=== PATIENT | female | born 1945 | race Caucasian/White ===

== ENCOUNTER 2018-06-02 11:20 | Day surgery (SDC) | payer MEDICARE, OTHER ==
[~2018-06-02] VITALS: Ht 149.9 cm; Wt 40.7 kg
[~2018-06-02 11:20] MED LIST: ACET500; ALEN70 PO; ASPI325; Acidophilus La100 GM PO; CIPR500 PO; ESTRTP; HYDACE5 PO; LETR2.5 PO; METR500 PO; NAPR500 PO; RXSULTRIDS PO; SULTRIDS PO
[2018-06-02] MEDS ORDERED: LETR2.5 (11:59)
[2018-06-02] MEDS ORDERED: ERGO400 (11:59)
== END 2018-06-02 13:08 | disposition home or self-care (01) ==
LOC: ORSCSDS 11:20
PROVIDERS: Surgery
PROC: 0DBP8ZX Excision of Rectum, Via Natural or Artificial Opening Endoscopic, Diagnostic (ICD-10-PCS; principal; 2018-06-02 12:30)
DX: Z85.048 Personal history of other malignant neoplasm of rectum, rectosigmoid junction, and anus (principal); K62.1 Rectal polyp; Z93.3 Colostomy status; E78.5 Hyperlipidemia, unspecified; D64.9 Anemia, unspecified; Z87.891 Personal history of nicotine dependence; Z79.899 Other long term (current) drug therapy
CPT/HCPCS: 88305; J0330; J1980; J2405

== ENCOUNTER 2018-11-25 11:52 | Inpatient (IN) | payer MEDICARE, OTHER ==
[~2018-11-25] VITALS: Ht 149.9 cm; Wt 41.3 kg
[~2018-11-25 11:52] MED LIST changes: +ERGO400; +LETR2.5
[2018-11-25 12:38] LABS: BASOPHILS ABSOLUTE AUTO 0.07 K/mm3 (0.00-0.23); BASOPHILS PERCENT AUTO 1 % (0-2); EOSINOPHILS ABSOLUTE AUTO 0.35 K/mm3 (0.00-0.68); EOSINOPHILS PERCENT AUTO 3 % (0-6); Hematocrit 42.6 % (33.0-51.0); Hemoglobin 13.2 g/dL (11.5-16.0); IMMATURE GRAN PERCENT AUTO 1 % (0-1); LYMPHOCYTES ABSOLUTE AUTO 1.05 K/mm3 (0.84-5.20); LYMPHOCYTES PERCENT AUTO 7 % (21-46); MONOCYTES ABSOLUTE AUTO 0.27 K/mm3 (0.16-1.47); MONOCYTES PERCENT AUTO 2 % (4-13); Mean Corpuscular HGB 28.4 pg (26.0-34.0); Mean Corpuscular Volume 92 fL (80-100); NEUTROPHILS ABSOLUTE AUTO 12.34 K/mm3 (1.96-9.15); NEUTROPHILS PERCENT AUTO 87 % (41-73); RDW Coefficient Variation 13.7 % (11.7-14.2); RDW Standard Deviation 46.7 fL (35.1-46.3); Red Blood Cell Count 4.64 M/mm3 (3.80-5.20); White Blood Cell Count 14.18 K/mm3 (4.00-11.30)
[2018-11-25 12:41] LABS: Mean Platelet Volume 9.4 fL (9.1-12.4); Platelet Count 456 K/mm3 (150-400)
[2018-11-25 12:55] LABS: Alanine Aminotransfer (ALT/SGP 14 U/L (12-78); Albumin, Blood 2.9 g/dL (3.4-5.0); Albumin/Globulin Ratio 0.5 (0.8-1.8); Alk Phos 110 U/L (50-136); Anion Gap 10 mmol/L (6-16); Aspartate Aminotrans (AST/SGOT 16 U/L (12-37); Bilirubin, Total 0.2 mg/dL (0.1-1.0); Blood Urea Nitrogen 9 mg/dL (8-24); CO2, Blood 22 mmol/L (21-32); Calcium, Blood 8.8 mg/dL (8.5-10.1); Chloride, Blood 103 mmol/L (98-108); Creatinine, Blood 0.56 mg/dL (0.40-1.00); Globulin, Blood 5.4 g/dL (2.2-4.0); Glomerular Filtration Rate >60 (60-); Glucose, Blood 110 mg/dL (70-99); Potassium, Blood 4.2 mmol/L (3.5-5.5); Sodium, Blood 135 mmol/L (136-145); Total Protein, Blood 8.3 g/dL (6.4-8.2)
[2018-11-25 13:16] LABS: Source, Urine Clean Catch
[2018-11-25 13:19] LABS: Bilirubin, Urine Neg (Neg); Blood, Urine 2+ (Neg); Glucose Qualitative, Urine Neg (Neg); Ketones, Urine Neg (Neg); Leukocyte Esterase, Urine 3+ (Neg); Nitrite, Urine Pos (Neg); Protein, Urine 2+ (Neg); Specific Gravity, Urine 1.015 (1.003-1.022); Urobilinogen, Urine NORM (Normal)
[2018-11-25 13:29] LABS: Appearance, Urine Hazy (Clear); Color, Urine Yellow (P-Yellow)
[2018-11-25 13:30] LABS: Bacteria Many /hpf; Squamous Epithelial Cells Few /hpf (Few); White Blood Cells, Urine TNTC /hpf (0-5)
[2018-11-26 05:21] LABS: BASOPHILS ABSOLUTE AUTO 0.04 K/mm3 (0.00-0.23); BASOPHILS PERCENT AUTO 0 % (0-2); EOSINOPHILS ABSOLUTE AUTO 0.01 K/mm3 (0.00-0.68); EOSINOPHILS PERCENT AUTO 0 % (0-6); Hematocrit 31.3 % (33.0-51.0); IMMATURE GRAN ABSOLUTE AUTO 0.05 K/mm3 (0.00-0.10); IMMATURE GRAN PERCENT AUTO 0 % (0-1); LYMPHOCYTES PERCENT AUTO 3 % (21-46); MONOCYTES ABSOLUTE AUTO 0.78 K/mm3 (0.16-1.47); MONOCYTES PERCENT AUTO 6 % (4-13); Mean Corpuscular HGB 27.8 pg (26.0-34.0); Mean Corpuscular HGB Conc 31.9 g/dL (31.5-36.5); Mean Platelet Volume 9.7 fL (9.1-12.4); NEUTROPHILS ABSOLUTE AUTO 10.98 K/mm3 (1.96-9.15); NEUTROPHILS PERCENT AUTO 90 % (41-73); Platelet Count 307 K/mm3 (150-400); RDW Coefficient Variation 13.9 % (11.7-14.2); RDW Standard Deviation 44.4 fL (35.1-46.3); White Blood Cell Count 12.26 K/mm3 (4.00-11.30)
[2018-11-26 05:22] LABS: Mean Corpuscular Volume 87 fL (80-100)
[2018-11-26 05:47] LABS: Alanine Aminotransfer (ALT/SGP 7 U/L (12-78); Albumin, Blood 2.1 g/dL (3.4-5.0); Albumin/Globulin Ratio 0.5 (0.8-1.8); Alk Phos 81 U/L (50-136); Anion Gap 8 mmol/L (6-16); Aspartate Aminotrans (AST/SGOT 13 U/L (12-37); Bilirubin, Total 0.7 mg/dL (0.1-1.0); Blood Urea Nitrogen 8 mg/dL (8-24); Bun/Creatinine Ratio 11.6 (12.0-20.0); CO2, Blood 23 mmol/L (21-32); Calcium, Blood 7.6 mg/dL (8.5-10.1); Chloride, Blood 104 mmol/L (98-108); Creatinine, Blood 0.69 mg/dL (0.40-1.00); Globulin, Blood 4.1 g/dL (2.2-4.0); Glomerular Filtration Rate >60 (60-); Glucose, Blood 83 mg/dL (70-99); Potassium, Blood 3.6 mmol/L (3.5-5.5); Sodium, Blood 135 mmol/L (136-145)
[2018-11-26 05:51] LABS: Total Protein, Blood 6.2 g/dL (6.4-8.2)
--- NOTE | 2018-11-26 07:35 | NUR ---
SHIFT SUMMARY A/O X4, ABLE TO MAKE NEEDS KNOWN. COOPERATIVE WITH CARE. ANSWERS QUESTIONS APPROPRIATELY. C/O PAIN/DISCOMFORT TO ABDOMEN RATED 8-9/10; MEDICATED PER EMAR. CAPTAIN OF GUARDS NOTED THAT PT HAD A FEVER SPIKE; 102.5 ORAL; MEDICATED PER EMAR FOR PAIN/FEVER. TELE IN PLACE. IV RUNNING NS @ 125 ML/HR. UP TO BATHROOM WITH 1 ASSIST SLIGHTLY UNSTEADY GAIT. BED IN LOWEST POSITION. CALL LIGHT AND BELONGINGS IN REACH. CONTINUED TO MONITOR T/O SHIFT. REPORT GIVEN TO ONCOMING RN.
--- NOTE | 2018-11-26 16:22 | NUR ---
SHIFT SUMMARY. A&OX4, SBA TO BATHROOM SECONDARY TO IV AND TELE, AWARE OF LIMITATIONS. PT WITH FEVER THIS AM, RESPONDED WELL TO APAP. PT REMAINED WITH ELEVATED TEMPERATURE THROUGHOUT REST OF SHIFT, BUT NOT GREATER THAT 100 F. PT WITH L ABD/FLANK PAIN MANAGED WELL WITH PO ULTRAM. PT WITH ONE EPISODE OF NAUSEA WITHOUT EMESIS MANAGED WELL WITH IV ZOFRAN. NO SOB. NO OTHER CHANGES.
[2018-11-27 04:32] LABS: BASOPHILS ABSOLUTE AUTO 0.04 K/mm3 (0.00-0.23); BASOPHILS PERCENT AUTO 0 % (0-2); EOSINOPHILS ABSOLUTE AUTO 0.06 K/mm3 (0.00-0.68); EOSINOPHILS PERCENT AUTO 0 % (0-6); Hematocrit 33.1 % (33.0-51.0); Hemoglobin 10.9 g/dL (11.5-16.0); IMMATURE GRAN ABSOLUTE AUTO 0.08 K/mm3 (0.00-0.10); IMMATURE GRAN PERCENT AUTO 1 % (0-1); LYMPHOCYTES ABSOLUTE AUTO 0.42 K/mm3 (0.84-5.20); LYMPHOCYTES PERCENT AUTO 3 % (21-46); MONOCYTES ABSOLUTE AUTO 1.15 K/mm3 (0.16-1.47); MONOCYTES PERCENT AUTO 8 % (4-13); Mean Corpuscular HGB 28.6 pg (26.0-34.0); Mean Corpuscular HGB Conc 32.9 g/dL (31.5-36.5); Mean Corpuscular Volume 87 fL (80-100); Mean Platelet Volume 9.4 fL (9.1-12.4); NEUTROPHILS PERCENT AUTO 88 % (41-73); Platelet Count 304 K/mm3 (150-400); RDW Standard Deviation 44.9 fL (35.1-46.3); Red Blood Cell Count 3.81 M/mm3 (3.80-5.20); White Blood Cell Count 14.75 K/mm3 (4.00-11.30)
--- NOTE | 2018-11-27 04:36 | NUR ---
SHIFT SUMMARY A/O X4, ABLE TO MAKE NEEDS KNOWN. COOPERATIVE WITH CARE. ANSWERS QUESTIONS APPROPRIATELY. NO C/O PAIN/DISCOMFORT. APPEARED TO REST MUCH OF SHIFT. REMAINS FEBRILE. ALL OTHER VITALS WNL. REMAINS A SBA; ACCORDING TO JACK SETTER CONTINUES TO BE A BIT UNSTEADY ON FEET. NO ACUTE CHANGES NOTED OVERNIGHT. BED IN LOWEST POSITION. CALL LIGHT AND BELONGINGS WITHIN REACH. WCTM. REPORT TO ONCOMING RN.
[2018-11-27 05:01] LABS: Anion Gap 14 mmol/L (6-16); Blood Urea Nitrogen 8 mg/dL (8-24); Bun/Creatinine Ratio 13.4 (12.0-20.0); CO2, Blood 19 mmol/L (21-32); Calcium, Blood 8.1 mg/dL (8.5-10.1); Chloride, Blood 102 mmol/L (98-108); Glomerular Filtration Rate >60 (60-); Glucose, Blood 65 mg/dL (70-99); Potassium, Blood 3.4 mmol/L (3.5-5.5); Sodium, Blood 135 mmol/L (136-145)
--- NOTE | 2018-11-27 07:26 | NUR ---
0520 PT STATED THAT SHE FELT A HEAVINESS IN HER CHEST THAT WAS DIFFERENT FROM THE ORIGINAL HEARTBURN SHE HAD BEEN FEELING THE LAST 2 DAYS. STATED UNABLE TO GIVE A PAIN NUMBER FROM 1-10, THE HEAVINESS JUST FELT UNCOMFORTABLE. PT HAS NO SIGNIFICANT CARDIAC HX. EMESIS X1 WITH NAUSEA AND STILL EXPERIENCING HEARTBURN. ALSO 100.8 TEMPERATURE NOTED. CALL PHYSICIAN. NEW ORDERS FOR EKG. STAT TROPONIN. MAALOX 30 ML PO. GIVEN ZOFRAN FOR N/V. AND TYLENOL FOR FEVER. EKG COMPLETED.
--- NOTE | 2018-11-27 17:22 | NUR ---
SHIFT SUMMARY. A&OX4, SBA TO BATHROOM. PT REPORTED L ABD TO FLANK PAIN THAT WAS INTERMITTENT AND DID NOT REQUIRE MEDICATION TODAY. AFEBRILE THIS SHIFT. PT REPORTS SUDDEN ONSETS OF VOMITTING GREEN LIQUID 3 TIMES THIS SHIFT. PT REPORTS NAUSEA SUBSIDES AFTER VOMITTING. PT HAS REPORTS POOR APPETITE AND ALMOST NO FOOD INTAKE. CONTINUES WITH MOSTLY LIQUID INTAKE. RENAL US COMPLETED THIS AFTERNOON. IN TO VISIT THIS MORNING. NO OTHER CHANGES.
--- NOTE | 2018-11-27 18:38 | NUR ---
POSTIVE BLOOD CULTURE RESULT REPORTED BY LAB, DR. VANCE NOTIFIED OF RESULT, NO NEW ORDERS.
--- NOTE | 2018-11-28 | NUR ---
2309 NOTIFIED OF POSITIVE BLOOD CULTURE. CALLED PHARMACY TO FIND OUT PATIENT IS BEING FULLY COVERED BY CURRENT ABX. PHARMACIST SUGGESTED VANCOMYCIN WELL. PHARMACIST STATED TO MAKE PHYSICIAN AWARE.
[2018-11-28 05:06] LABS: BASOPHILS ABSOLUTE AUTO 0.04 K/mm3 (0.00-0.23); BASOPHILS PERCENT AUTO 0 % (0-2); EOSINOPHILS ABSOLUTE AUTO 0.13 K/mm3 (0.00-0.68); EOSINOPHILS PERCENT AUTO 1 % (0-6); Hematocrit 34.7 % (33.0-51.0); Hemoglobin 11.1 g/dL (11.5-16.0); IMMATURE GRAN ABSOLUTE AUTO 0.14 K/mm3 (0.00-0.10); IMMATURE GRAN PERCENT AUTO 1 % (0-1); LYMPHOCYTES ABSOLUTE AUTO 0.61 K/mm3 (0.84-5.20); LYMPHOCYTES PERCENT AUTO 3 % (21-46); MONOCYTES ABSOLUTE AUTO 1.46 K/mm3 (0.16-1.47); MONOCYTES PERCENT AUTO 8 % (4-13); Mean Corpuscular HGB 27.8 pg (26.0-34.0); Mean Corpuscular Volume 87 fL (80-100); Mean Platelet Volume 9.6 fL (9.1-12.4); NEUTROPHILS ABSOLUTE AUTO 15.61 K/mm3 (1.96-9.15); NEUTROPHILS PERCENT AUTO 87 % (41-73); Platelet Count 363 K/mm3 (150-400); RDW Coefficient Variation 13.9 % (11.7-14.2); RDW Standard Deviation 44.5 fL (35.1-46.3); White Blood Cell Count 17.99 K/mm3 (4.00-11.30)
[2018-11-28 05:34] LABS: Anion Gap 16 mmol/L (6-16); Blood Urea Nitrogen 8 mg/dL (8-24); CO2, Blood 17 mmol/L (21-32); Calcium, Blood 7.8 mg/dL (8.5-10.1); Chloride, Blood 105 mmol/L (98-108); Creatinine, Blood 0.57 mg/dL (0.40-1.00); Glomerular Filtration Rate >60 (60-); Glucose, Blood 75 mg/dL (70-99); Potassium, Blood 3.3 mmol/L (3.5-5.5); Sodium, Blood 138 mmol/L (136-145)
--- NOTE | 2018-11-28 06:32 | NUR ---
SHIFT SUMMARY A/O X4, ABLE TO MAKE NEEDS KNOWN. COOPERATIVE WITH CARE. ANSWERS QUESTIONS APPROPRIATELY. C/O MILD DISCOMFORT TO L FLANK; 100.4 TEMPERATURE AT THAT TIME; MEDICATED PER EMAR. APPEARED TO REST MUCH OF SHIFT. POSITIVE BLOOD CULTURES FOR GRAM + COCCI WITH CLUSTERS AND GRAM + COCCI. REPORTED FINDING TO ON-CALL PHYSICIAN WHICH THEN ORDERED A ONE TIME DOSING OF VACOMYCIN. WHITE BLOOD CELL COUNT CONTINUES TO INCREASE. PHYSICIAN TO RE-ASSESS. VSS THIS AM/AFEBRILE. HOPEFUL TO GO HOME SOON. NO ACUTE CHANGES THIS SHIFT. WCTM. BED IN LOWEST POSITION. CALL LIGHT IN REACH. REPORT TO ONCOMING RN.
--- NOTE | 2018-11-28 09:00 | NUR ---
SPOKE WITH NURSE AT DR. THOMAS OFFICE AND RECIEVED OK TO ACCESS MEDIPORT FOR IV ABX.
--- NOTE | 2018-11-28 10:27 | NUR ---
AWRD ACCESSED TO R CHEST WALL WITH STERILE PROCEDURE, ASSISTED BY
--- NOTE | 2018-11-28 16:00 | NUR ---
Per admit trigger, I met with Mrs. Chow to offer prayer and encouragement. She appears quite frail and had trouble staying awake. She smiled easily and accepted prayer for healing and strength. I will remain available.
--- NOTE | 2018-11-28 17:07 | NUR ---
PERMISSION FOR CARE PATIENT GAVE MACHINE PRECISION ETCHER PERMISSION TO PROVIDE CARE ON 11/29/2018 [id number].
--- NOTE | 2018-11-28 18:26 | NUR ---
SHIFT SUMMARY. A&OX4, INDEPENDENT IN ROOM. PT CONTINUES WITH LETHARGY, AND REPORTS GENERAL FEELING OF UNWELL. NO FEVER THIS SHIFT. PT WITH INTERMITENT NAUSEA THAT RESOLVES SHORTLY AFTER VOMITTING THREE TIMES THIS SHIFT. PT DENIES NEED FOR ANTIEMETIC. PT WITH PAIN THAT DEVELOPED THIS AFTERNOON TO L FLANK THAT IS SHARP AND STABBING RADIATES TO BACK, PT REPORTED SOME RELIEF WITH PRN ULTRAM. IV ROCEPHIN D/C'D. PT CONTINUES WITH IV VANCO AND LEVAQUIN. PENDING FINAL BLOOD CULTURE RESULTS. POOR MEAL INTAKE, PT IS INTAKING FLUIDS.
[2018-11-29 04:38] LABS: BASOPHILS ABSOLUTE AUTO 0.04 K/mm3 (0.00-0.23); BASOPHILS PERCENT AUTO 0 % (0-2); EOSINOPHILS ABSOLUTE AUTO 0.06 K/mm3 (0.00-0.68); EOSINOPHILS PERCENT AUTO 0 % (0-6); Hemoglobin 11.2 g/dL (11.5-16.0); IMMATURE GRAN ABSOLUTE AUTO 0.12 K/mm3 (0.00-0.10); IMMATURE GRAN PERCENT AUTO 1 % (0-1); LYMPHOCYTES ABSOLUTE AUTO 0.61 K/mm3 (0.84-5.20); LYMPHOCYTES PERCENT AUTO 4 % (21-46); MONOCYTES ABSOLUTE AUTO 1.38 K/mm3 (0.16-1.47); MONOCYTES PERCENT AUTO 8 % (4-13); Mean Corpuscular HGB 28.6 pg (26.0-34.0); Mean Corpuscular HGB Conc 32.9 g/dL (31.5-36.5); Mean Corpuscular Volume 87 fL (80-100); Mean Platelet Volume 9.1 fL (9.1-12.4); NEUTROPHILS ABSOLUTE AUTO 14.16 K/mm3 (1.96-9.15); NEUTROPHILS PERCENT AUTO 87 % (41-73); Platelet Count 387 K/mm3 (150-400); RDW Coefficient Variation 13.9 % (11.7-14.2); RDW Standard Deviation 44.2 fL (35.1-46.3); Red Blood Cell Count 3.92 M/mm3 (3.80-5.20); White Blood Cell Count 16.37 K/mm3 (4.00-11.30)
[2018-11-29 04:59] LABS: Anion Gap 14 mmol/L (6-16); Blood Urea Nitrogen 6 mg/dL (8-24); Bun/Creatinine Ratio 12.8 (12.0-20.0); CO2, Blood 19 mmol/L (21-32); Calcium, Blood 7.4 mg/dL (8.5-10.1); Chloride, Blood 106 mmol/L (98-108); Creatinine, Blood 0.47 mg/dL (0.40-1.00); Glomerular Filtration Rate >60 (60-); Glucose, Blood 87 mg/dL (70-99); Sodium, Blood 139 mmol/L (136-145)
--- NOTE | 2018-11-29 05:37 | NUR ---
SHIFT SUMMARY PT ADMITTED WITH UTI SECONDARY TO SEPSIS WITH NOTED POSITIVE BLOOD CULTURES WITH GRAM POSITIVE COCCI IN CLUSTERS. MEDIPORT TO R UPPER CHEST, MAY ACCESS FOR MEDS AND LABS. FULL CODE. LOVENOX. REGULAR DIET. THE PT IS PLEASENT, COOPERATIVE, ALERT, ORIENTED, AND INDEPENDENT IN ROOM. 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 THE PT STATED THAT SHE ONLY HAS ONE BAG LEFT IN THE HOSPITAL AND HER IS SUPPOSED TO BRING IN SOME MORE HOPEFULLY TODAY. THE PT PRESENTED TO THE ED WITH L FLANK PAIN. PT HAS A NOTED PAST HISTORY OF RECTAL CANCER AND L SIDED HYDRONEPHROSIS S/P URETERAL STEND IN SEPTEMBER 2018 FOR A KIDNEY STONE THAT IS DUE TO BE REMOVED LAT[facility]. 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 PER REPORT PT MAY POSSIBLY HAVE INFECTION CAUSED BY STENT BUT PT REPORTED BEING TOLD IT COULD BE CAUSED BY RECENT MEDIPORT ACCESS. THE PT HAS APPEARED TO SLEEP COMFORTABLY WITH NO APPARENT SIGNS OF ACUTE DISTRESS. ABLE TO MAKE NEEDS KNOWN AND CALL LIGHT IN REACH.
--- NOTE | 2018-11-29 17:51 | NUR ---
SUMMARY PT SITTING UP IN BED WATCHING TV, PT HAS BEEN INDEPENDENT IN THE ROOM, PT IS PLEASANT AND COOPERATIVE WITH CARE, PT HAS A POOR APPETITE, ONLY EATS SMALL AMOUNTS SPORADICALLY, PT WILL BE NPO AFTER MIDNIGHT FOR REMOVAL OF MEDIPORT TOMORROW, PT AWARE AND UPDATED, VSS, NO ACUTE CHANGES, WILL CONT TO MONITOR
[2018-11-29 21:38] LABS: Vancomycin, Trough 3.5 ug/mL (5.0-10.0)
--- NOTE | 2018-11-30 04:57 | NUR ---
SHIFT SUMMARY PT SLEPT FAIR, HAD SOME NAUSEA EARLY ON IN SHIFT AND MEDICATED WITH IV COMPAZINE. ALSO HAD SOME MAALOX FOR HEARTBURN. PT GIVEN EVENING DOSE OF IV VANCO AND MEDIPORT DEACCESSED INSTRUCTED PER PREVIOUS NURSE REPORT. PT TO HAVE MEDIPORT REMOVED TODAY. PT NPO AFTER MIDNIGHT. NO FURTHER C/O'S THIS AM, WILL CONTINUE TO MONITOR.
[2018-11-30 05:04] LABS: BASOPHILS ABSOLUTE AUTO 0.05 K/mm3 (0.00-0.23); BASOPHILS PERCENT AUTO 0 % (0-2); EOSINOPHILS ABSOLUTE AUTO 0.01 K/mm3 (0.00-0.68); EOSINOPHILS PERCENT AUTO 0 % (0-6); Hematocrit 38.3 % (33.0-51.0); Hemoglobin 12.4 g/dL (11.5-16.0); IMMATURE GRAN ABSOLUTE AUTO 0.15 K/mm3 (0.00-0.10); IMMATURE GRAN PERCENT AUTO 1 % (0-1); LYMPHOCYTES ABSOLUTE AUTO 0.71 K/mm3 (0.84-5.20); LYMPHOCYTES PERCENT AUTO 4 % (21-46); MONOCYTES ABSOLUTE AUTO 1.63 K/mm3 (0.16-1.47); MONOCYTES PERCENT AUTO 9 % (4-13); Mean Corpuscular HGB 27.6 pg (26.0-34.0); Mean Corpuscular HGB Conc 32.4 g/dL (31.5-36.5); Mean Corpuscular Volume 85 fL (80-100); Mean Platelet Volume 9.2 fL (9.1-12.4); NEUTROPHILS ABSOLUTE AUTO 15.69 K/mm3 (1.96-9.15); NEUTROPHILS PERCENT AUTO 86 % (41-73); Platelet Count 477 K/mm3 (150-400); RDW Coefficient Variation 13.9 % (11.7-14.2); RDW Standard Deviation 43.3 fL (35.1-46.3); Red Blood Cell Count 4.49 M/mm3 (3.80-5.20); White Blood Cell Count 18.24 K/mm3 (4.00-11.30)
[2018-11-30 05:35] LABS: Anion Gap 12 mmol/L (6-16); Blood Urea Nitrogen 9 mg/dL (8-24); Bun/Creatinine Ratio 18.9 (12.0-20.0); CO2, Blood 21 mmol/L (21-32); Calcium, Blood 8.1 mg/dL (8.5-10.1); Chloride, Blood 103 mmol/L (98-108); Creatinine, Blood 0.48 mg/dL (0.40-1.00); Glomerular Filtration Rate >60 (60-); Glucose, Blood 125 mg/dL (70-99); Potassium, Blood 3.7 mmol/L (3.5-5.5); Sodium, Blood 136 mmol/L (136-145)
--- NOTE | 2018-11-30 12:45 | NUR ---
PT TRANSMPORTED TO [facility]. AGREES WITH PLANNED SURGERY. LUNG SOUNDS CLEAR.
[2018-11-30] MEDS ORDERED: LEVFLO500 PO (14:00)
--- NOTE | 2018-11-30 14:14 | NUR ---
11/30/18 1414 Papst,Pancho D 10CC 1:1 MIX OF 0.5% MARCAINE WITH EPINEPHRINE AND 1% LIDOCAINE GIVEN FOR LOCAL
--- NOTE | 2018-11-30 15:10 | NUR ---
SUMMARY/DISCHARGE PT DISCHARGED TO HOME, PT AND SPOUSE VERBALIZED UNDERSTANDING OF DISCHARGE INSTRUCTIONS, PT HAD MEDIPORT REMOVED, SITE CLEAN AND DRY, PT DENIES ANY PAIN OR SOB, HAS BEEN INDEPENDENT IN THE ROOM, PT TAKEN OUT SAFELY VIA WHEELCHAIR
== END 2018-11-30 15:29 | disposition home or self-care (01) | DRG 314 ==
LOC: ER 11:52 → MEDS 16:58 → ENPENDDIS 11-30 10:43 → MEDS 11-30 15:29
PROVIDERS: Hospitalist; Internal Medicine; Physician Assistant; Surgery; ADMIT Internal Medicine
PROC: 05PYX3Z Removal of Infusion Device from Upper Vein, External Approach (ICD-10-PCS; 2018-11-30)
PROC: 0JPT0WZ Removal of Totally Implantable Vascular Access Device from Trunk Subcutaneous Tissue and Fascia, Open Approach (ICD-10-PCS; principal; 2018-11-30 12:45)
DX: T80.218A Other infection due to central venous catheter, initial encounter (principal); A40.9 Streptococcal sepsis, unspecified; N13.1 Hydronephrosis with ureteral stricture, not elsewhere classified; K59.00 Constipation, unspecified; Z85.038 Personal history of other malignant neoplasm of large intestine; B96.1 Klebsiella pneumoniae [K. pneumoniae] as the cause of diseases classified elsewhere
CPT/HCPCS: 36415; 74018; 76770; 80048; 80053; 80202; 81001; 83690; 84484; 85025; 87040; 87070; 87076; 87077; 87086; 87186; 93005; 93010; 96361; 96365; 96367; 96375; 96376; 99285-25; J0696; J0780; J1642; J1650; J1956; J2250; J2405; J3010; J3370; J7030; J7040; J7120

== ENCOUNTER 2019-01-21 16:46 | Inpatient (IN) | payer MEDICARE, OTHER ==
[~2019-01-21] VITALS: Ht 149.9 cm; Wt 34.3 kg
[~2019-01-21 16:46] MED LIST changes: -LETR2.5; +LEVFLO500 PO
[2019-01-21 17:40] LABS: BASOPHILS ABSOLUTE AUTO 0.08 K/mm3 (0.00-0.23); BASOPHILS PERCENT AUTO 0 % (0-2); EOSINOPHILS ABSOLUTE AUTO 0.02 K/mm3 (0.00-0.68); EOSINOPHILS PERCENT AUTO 0 % (0-6); Hematocrit 32.2 % (33.0-51.0); Hemoglobin 10.2 g/dL (11.5-16.0); IMMATURE GRAN ABSOLUTE AUTO 0.37 K/mm3 (0.00-0.10); IMMATURE GRAN PERCENT AUTO 1 % (0-1); LYMPHOCYTES ABSOLUTE AUTO 0.84 K/mm3 (0.84-5.20); LYMPHOCYTES PERCENT AUTO 3 % (21-46); MONOCYTES ABSOLUTE AUTO 1.77 K/mm3 (0.16-1.47); MONOCYTES PERCENT AUTO 5 % (4-13); Mean Corpuscular HGB 26.3 pg (26.0-34.0); Mean Corpuscular HGB Conc 31.7 g/dL (31.5-36.5); Mean Corpuscular Volume 83 fL (80-100); Mean Platelet Volume 8.7 fL (9.1-12.4); NEUTROPHILS ABSOLUTE AUTO 30.72 K/mm3 (1.96-9.15); NEUTROPHILS PERCENT AUTO 91 % (41-73); Platelet Count 685 K/mm3 (150-400); RDW Coefficient Variation 15.8 % (11.7-14.2); Red Blood Cell Count 3.88 M/mm3 (3.80-5.20)
[2019-01-21 17:56] LABS: Alanine Aminotransfer (ALT/SGP 15 U/L (12-78); Albumin, Blood 2.4 g/dL (3.4-5.0); Albumin/Globulin Ratio 0.4 (0.8-1.8); Alk Phos 112 U/L (50-136); Anion Gap 12 mmol/L (6-16); Aspartate Aminotrans (AST/SGOT 12 U/L (12-37); Bilirubin, Total 1.1 mg/dL (0.1-1.0); Blood Urea Nitrogen 16 mg/dL (8-24); Bun/Creatinine Ratio 25.2 (12.0-20.0); CO2, Blood 23 mmol/L (21-32); Calcium, Blood 8.9 mg/dL (8.5-10.1); Chloride, Blood 93 mmol/L (98-108); Creatinine, Blood 0.63 mg/dL (0.40-1.00); Globulin, Blood 5.9 g/dL (2.2-4.0); Glomerular Filtration Rate >60 (60-); Glucose, Blood 79 mg/dL (70-99); Sodium, Blood 128 mmol/L (136-145); Total Protein, Blood 8.3 g/dL (6.4-8.2)
[2019-01-21] MEDS ORDERED: ELIQUIS5 MG PO (18:32)
[2019-01-21] MEDS ORDERED: FOLGARD TABLET1 EACH PO (18:34)
[2019-01-21 18:39] LABS: Source, Urine Clean Catch
[2019-01-21 18:47] LABS: Appearance, Urine Turbid (Clear); Blood, Urine 5+ (Neg); Color, Urine Amber (P-Yellow); Glucose Qualitative, Urine Neg (Neg); Ketones, Urine 4+ (Neg); Leukocyte Esterase, Urine 3+ (Neg); Nitrite, Urine Pos (Neg); Protein, Urine 3+ (Neg); Urobilinogen, Urine 1+ (Normal)
[2019-01-21 18:53] LABS: Bilirubin, Urine 1+ (Neg)
[2019-01-21 18:54] LABS: Bacteria Many /hpf; Squamous Epithelial Cells Not Seen /hpf (Few); White Blood Cells, Urine TNTC /hpf (0-5)
[2019-01-22 06:03] LABS: Alanine Aminotransfer (ALT/SGP 11 U/L (12-78); Albumin, Blood 1.9 g/dL (3.4-5.0); Albumin/Globulin Ratio 0.4 (0.8-1.8); Alk Phos 86 U/L (50-136); Anion Gap 15 mmol/L (6-16); Aspartate Aminotrans (AST/SGOT 15 U/L (12-37); Bilirubin, Total 0.6 mg/dL (0.1-1.0); Blood Urea Nitrogen 13 mg/dL (8-24); Bun/Creatinine Ratio 23.3 (12.0-20.0); CO2, Blood 17 mmol/L (21-32); Calcium, Blood 7.3 mg/dL (8.5-10.1); Chloride, Blood 102 mmol/L (98-108); Creatinine, Blood 0.56 mg/dL (0.40-1.00); Globulin, Blood 4.5 g/dL (2.2-4.0); Glomerular Filtration Rate >60 (60-); Glucose, Blood 56 mg/dL (70-99); Potassium, Blood 3.8 mmol/L (3.5-5.5); Sodium, Blood 134 mmol/L (136-145); Total Protein, Blood 6.4 g/dL (6.4-8.2)
--- NOTE | 2019-01-22 07:26 | NUR ---
01/22/19 0600 SLEPT ON AND OFF AFTER ADMISSION PROCESS. IV FLUIDS RUNNING AT 150 ML/HOUR. DENIED ANY NAUSEA THIS AM. VITALS ARE STABLE. ENCOURAGED ORAL INTAKE TOLERATED BUT JUST TOOK ICE CHIPS THIS SHIFT.
--- NOTE | 2019-01-22 17:52 | NUR ---
PT AOX4 AND COOPERATIVE OF ALL CARE. PT TREATED FOR PAIN PER EMAR. PT HAS BEEN A ONE PERSON ASSIST TO RESTROOM. PT HAS SPENT MOST OF THE DAY SLEEPING AND STATES SHE HAS BEEN FEELING BETTER COMPARED TO WHEN SHE FIRST ARRIVED. WILL CONTINUE TO MONITOR.
[2019-01-23 04:54] LABS: Anion Gap 12 mmol/L (6-16); Blood Urea Nitrogen 7 mg/dL (8-24); Bun/Creatinine Ratio 14.1 (12.0-20.0); CO2, Blood 19 mmol/L (21-32); Calcium, Blood 7.6 mg/dL (8.5-10.1); Chloride, Blood 104 mmol/L (98-108); Glomerular Filtration Rate >60 (60-); Glucose, Blood 70 mg/dL (70-99); Potassium, Blood 3.6 mmol/L (3.5-5.5); Sodium, Blood 135 mmol/L (136-145)
--- NOTE | 2019-01-23 06:45 | NUR ---
01/23/19 0600 VITALS STABLE. MEDICATED ONCE FOR ABDOMINAL PAIN WITH EFFECT. UNEVENTFUL NIGHT.
[2019-01-23] MEDS ORDERED: LEVFLO500 PO (13:21)
--- NOTE | 2019-01-23 16:06 | NUR ---
DISCHARGE THIS RN EXPLAINED DISCHARGE INSTRUCTIONS TO PT AND PT'S SPOUSE. THEY REPORT THEY UNDERSTAND. NEW MEDICATION FAXED TO [facility]. IV REMOVED WITHOUT DIFFICULTY. PT TRANSFERRED TO PRIVATE VEHICLE VIA WHEELCHAIR BY [employer]. PT'S BELONGINGS WITH PT AND PT'S SPOUSE.
== END 2019-01-23 13:35 | disposition home or self-care (01) | DRG 872 ==
LOC: ER 16:46 → MEDS 21:13 → ENPENDDIS 01-23 12:39 → MEDS 01-23 13:35
PROVIDERS: Emergency Medicine; Hospitalist; ADMIT Hospitalist
DX: A40.8 Other streptococcal sepsis (principal); E87.1 Hypo-osmolality and hyponatremia; N13.6 Pyonephrosis; Z85.048 Personal history of other malignant neoplasm of rectum, rectosigmoid junction, and anus; Z85.3 Personal history of malignant neoplasm of breast; Z86.718 Personal history of other venous thrombosis and embolism; Z79.01 Long term (current) use of anticoagulants; F17.210 Nicotine dependence, cigarettes, uncomplicated; Z93.3 Colostomy status
CPT/HCPCS: 36415; 74176; 80048; 80053; 81001; 82947; 83605; 83690; 85025; 87040; 87086; 96361; 96365; 96375; 96376; 99285-25; J0696; J1170; J2405; J7030; P9612

== ENCOUNTER 2019-02-10 18:03 | Inpatient (IN) | payer MEDICARE, OTHER ==
[~2019-02-10] VITALS: Ht 149.9 cm; Wt 32.8 kg
[~2019-02-10 18:03] MED LIST changes: +ELIQUIS5 MG PO; +FOLGARD TABLET1 EACH PO
[2019-02-10 19:10] LABS: BASOPHILS ABSOLUTE AUTO 0.08 K/mm3 (0.00-0.23); BASOPHILS PERCENT AUTO 0 % (0-2); EOSINOPHILS ABSOLUTE AUTO 0.01 K/mm3 (0.00-0.68); EOSINOPHILS PERCENT AUTO 0 % (0-6); Hemoglobin 9.8 g/dL (11.5-16.0); IMMATURE GRAN ABSOLUTE AUTO 0.19 K/mm3 (0.00-0.10); IMMATURE GRAN PERCENT AUTO 1 % (0-1); LYMPHOCYTES ABSOLUTE AUTO 0.62 K/mm3 (0.84-5.20); LYMPHOCYTES PERCENT AUTO 3 % (21-46); MONOCYTES ABSOLUTE AUTO 1.06 K/mm3 (0.16-1.47); MONOCYTES PERCENT AUTO 4 % (4-13); Mean Corpuscular HGB 25.2 pg (26.0-34.0); Mean Corpuscular HGB Conc 29.7 g/dL (31.5-36.5); Mean Corpuscular Volume 85 fL (80-100); Mean Platelet Volume 8.6 fL (9.1-12.4); NEUTROPHILS ABSOLUTE AUTO 22.85 K/mm3 (1.96-9.15); NEUTROPHILS PERCENT AUTO 92 % (41-73); NRBC ABSOLUTE 0.04 K/mm3 (0.00-0.02); NRBC Auto 0.2 /100 WBC (0.0-0.2); Platelet Count 672 K/mm3 (150-400); RDW Coefficient Variation 17.2 % (11.7-14.2); Red Blood Cell Count 3.89 M/mm3 (3.80-5.20); White Blood Cell Count 24.81 K/mm3 (4.00-11.30)
[2019-02-10 19:24] LABS: Alanine Aminotransfer (ALT/SGP 10 U/L (12-78); Albumin, Blood 2.1 g/dL (3.4-5.0); Albumin/Globulin Ratio 0.4 (0.8-1.8); Alk Phos 111 U/L (50-136); Anion Gap 8 mmol/L (6-16); Aspartate Aminotrans (AST/SGOT 15 U/L (12-37); Bilirubin, Total 0.7 mg/dL (0.1-1.0); Blood Urea Nitrogen 12 mg/dL (8-24); Bun/Creatinine Ratio 33.6 (12.0-20.0); CO2, Blood 28 mmol/L (21-32); Calcium, Blood 8.4 mg/dL (8.5-10.1); Chloride, Blood 95 mmol/L (98-108); Creatinine, Blood 0.36 mg/dL (0.40-1.00); Globulin, Blood 4.9 g/dL (2.2-4.0); Glomerular Filtration Rate >60 (60-); Glucose, Blood 95 mg/dL (70-99); Potassium, Blood 3.2 mmol/L (3.5-5.5); Sodium, Blood 131 mmol/L (136-145)
[2019-02-10 22:59] LABS: Source, Urine Clean Catch
[2019-02-10 23:04] LABS: Blood, Urine 5+ (Neg); Glucose Qualitative, Urine Neg (Neg); Ketones, Urine 3+ (Neg); Leukocyte Esterase, Urine 3+ (Neg); Nitrite, Urine Neg (Neg); Protein, Urine 3+ (Neg); Specific Gravity, Urine 1.015 (1.003-1.022); Urobilinogen, Urine 1+ (Normal)
[2019-02-10 23:08] LABS: Bilirubin, Urine 1+ (Neg)
[2019-02-10 23:14] LABS: Appearance, Urine Turbid (Clear); Bacteria Many /hpf; Color, Urine Brown (P-Yellow); Squamous Epithelial Cells Rare /hpf (Few); White Blood Cells, Urine TNTC /hpf (0-5)
[2019-02-10 23:16] LABS: Amorphous Heavy (0-Heavy)
--- NOTE | 2019-02-11 06:43 | NUR ---
SHIFT SUMMARY PATIENT ADMITTED TO PCU AT APPROX 0600. SETTLED INTO BED, SLEEPING COMFORTABLY AND DENIED ANY UNMET NEEDS. VITALS STABLE, PT ON ROOM AIR AND SATS ARE GREATER THAN 92. PT HAS HER BED IN THE LOWEST POSITION, CALL LIGHT IN REACH AND BED ALARM ACTIVE. PT WILL CONTINUE TO BE MONITORED UNTIL HANDOFF TO DAYSHIFT RN.
--- NOTE | 2019-02-11 16:43 | NUR ---
SHIFT SUMMARY PT RESTING IN BED THROUGHOUT THE DAY. VSS. ALERT AND ORIENTED X3. C/O 9-/10 PAIN TO LEFT ABDOMEN AND LEFT LEG, MEDICATED WITH PRN PAIN MEDS. LUNG SOUNDS CLEAR, HEART TONES REGULAR. COLOSTOMY TO ABODMEN, NO OUTPUT THIS SHIFT, RIGHT ABDOMEN DISTENTION NOTED, FIRM ON PALPATION. 1+ PITTING EDEMA TO BILATERAL FEET. GENERALIZED WEAKNESS NOTED, UP TO BEDSIDE COMMODE WITH SBA.
--- NOTE | 2019-02-11 16:48 | NUR ---
PT STABLE FOR TRANSFER TO MEDICAL FLOOR. REPORT PROVIDED TO [facility] ON MEDICAL FLOOR. PT TRANSFERED VIA BED TO MEDICAL FLOOR.
--- NOTE | 2019-02-11 16:55 | NUR ---
XFER TO [id number] REC REPORT FROM JASIEL HOOD @ [id number]
--- NOTE | 2019-02-12 04:18 | NUR ---
SHIFT SUMMARY PT HAS RESTED MOST OF THE SHIFT. 1 PA OOB. VITALS STABLE. IV ABX PER ORDERS. PT CONTINUES TO COMPLAIN OF LEFT LEG PAIN. ADEQUATE CONTROL WITH FENTANYL AND NORCO. ASSESSMENT HAS REMAINED UNCHANGED. WILL CONTINUE TO MONITOR AND REPORT TO ONCOMING RN.
[2019-02-12 05:07] LABS: BASOPHILS ABSOLUTE AUTO 0.02 K/mm3 (0.00-0.23); BASOPHILS PERCENT AUTO 0 % (0-2); EOSINOPHILS ABSOLUTE AUTO 0.06 K/mm3 (0.00-0.68); EOSINOPHILS PERCENT AUTO 0 % (0-6); Hematocrit 24.8 % (33.0-51.0); Hemoglobin 7.4 g/dL (11.5-16.0); IMMATURE GRAN PERCENT AUTO 1 % (0-1); LYMPHOCYTES ABSOLUTE AUTO 0.64 K/mm3 (0.84-5.20); LYMPHOCYTES PERCENT AUTO 4 % (21-46); MONOCYTES ABSOLUTE AUTO 1.32 K/mm3 (0.16-1.47); MONOCYTES PERCENT AUTO 9 % (4-13); Mean Corpuscular HGB 25.3 pg (26.0-34.0); Mean Corpuscular HGB Conc 29.8 g/dL (31.5-36.5); Mean Corpuscular Volume 85 fL (80-100); Mean Platelet Volume 8.9 fL (9.1-12.4); NEUTROPHILS PERCENT AUTO 86 % (41-73); Platelet Count 555 K/mm3 (150-400); RDW Coefficient Variation 17.3 % (11.7-14.2); RDW Standard Deviation 53.2 fL (35.1-46.3); Red Blood Cell Count 2.93 M/mm3 (3.80-5.20); White Blood Cell Count 15.44 K/mm3 (4.00-11.30)
[2019-02-12 05:49] LABS: Magnesium, Blood 1.8 mg/dL (1.6-2.4)
[2019-02-12 06:32] LABS: BASOPHILS ABSOLUTE AUTO 0.03 K/mm3 (0.00-0.23); BASOPHILS PERCENT AUTO 0 % (0-2); EOSINOPHILS ABSOLUTE AUTO 0.09 K/mm3 (0.00-0.68); EOSINOPHILS PERCENT AUTO 1 % (0-6); Hematocrit 25.3 % (33.0-51.0); Hemoglobin 7.5 g/dL (11.5-16.0); IMMATURE GRAN ABSOLUTE AUTO 0.09 K/mm3 (0.00-0.10); IMMATURE GRAN PERCENT AUTO 1 % (0-1); LYMPHOCYTES ABSOLUTE AUTO 0.52 K/mm3 (0.84-5.20); LYMPHOCYTES PERCENT AUTO 3 % (21-46); MONOCYTES ABSOLUTE AUTO 0.85 K/mm3 (0.16-1.47); MONOCYTES PERCENT AUTO 5 % (4-13); Mean Corpuscular HGB 25.3 pg (26.0-34.0); Mean Corpuscular HGB Conc 29.6 g/dL (31.5-36.5); Mean Corpuscular Volume 86 fL (80-100); Mean Platelet Volume 8.6 fL (9.1-12.4); NEUTROPHILS ABSOLUTE AUTO 14.46 K/mm3 (1.96-9.15); NEUTROPHILS PERCENT AUTO 90 % (41-73); Platelet Count 567 K/mm3 (150-400); RDW Coefficient Variation 17.3 % (11.7-14.2); RDW Standard Deviation 53.8 fL (35.1-46.3); Red Blood Cell Count 2.96 M/mm3 (3.80-5.20); White Blood Cell Count 16.04 K/mm3 (4.00-11.30)
[2019-02-12 06:50] LABS: Magnesium, Blood 1.7 mg/dL (1.6-2.4)
[2019-02-12 06:53] LABS: Alanine Aminotransfer (ALT/SGP 9 U/L (12-78); Albumin, Blood 1.7 g/dL (3.4-5.0); Albumin/Globulin Ratio 0.4 (0.8-1.8); Alk Phos 74 U/L (50-136); Anion Gap 13 mmol/L (6-16); Aspartate Aminotrans (AST/SGOT 16 U/L (12-37); Bilirubin, Total 0.6 mg/dL (0.1-1.0); Blood Urea Nitrogen 7 mg/dL (8-24); Bun/Creatinine Ratio 16.4 (12.0-20.0); CO2, Blood 22 mmol/L (21-32); Calcium, Blood 7.2 mg/dL (8.5-10.1); Chloride, Blood 104 mmol/L (98-108); Creatinine, Blood 0.43 mg/dL (0.40-1.00); Glomerular Filtration Rate >60 (60-); Glucose, Blood 48 mg/dL (70-99); Phosphorus, Blood 2.4 mg/dL (2.5-4.9); Potassium, Blood 2.4 mmol/L (3.5-5.5); Sodium, Blood 139 mmol/L (136-145); Total Protein, Blood 5.7 g/dL (6.4-8.2)
[2019-02-12 06:55] LABS: Alanine Aminotransfer (ALT/SGP 7 U/L (12-78); Albumin, Blood 1.6 g/dL (3.4-5.0); Albumin/Globulin Ratio 0.4 (0.8-1.8); Alk Phos 75 U/L (50-136); Anion Gap 12 mmol/L (6-16); Aspartate Aminotrans (AST/SGOT 16 U/L (12-37); Bilirubin, Total 0.6 mg/dL (0.1-1.0); Blood Urea Nitrogen 7 mg/dL (8-24); Bun/Creatinine Ratio 16.2 (12.0-20.0); CO2, Blood 22 mmol/L (21-32); Calcium, Blood 7.1 mg/dL (8.5-10.1); Chloride, Blood 104 mmol/L (98-108); Creatinine, Blood 0.43 mg/dL (0.40-1.00); Globulin, Blood 4.2 g/dL (2.2-4.0); Glomerular Filtration Rate >60 (60-); Glucose, Blood 47 mg/dL (70-99); Phosphorus, Blood 2.2 mg/dL (2.5-4.9); Potassium, Blood 2.5 mmol/L (3.5-5.5); Sodium, Blood 138 mmol/L (136-145); Total Protein, Blood 5.8 g/dL (6.4-8.2)
--- NOTE | 2019-02-12 07:07 | NUR ---
CRITICAL LAB RESULTS GLUCOSE 47. PT ASYMPTOMATIC, RESTING IN BED AND EASILY AROUSABLE. A/OX4. CUP OF ORANGE JUICE GIVEN. POTASSIUM 2.4. DAYSNCFT RN WAS BESIDE ME WHEN CRITICAL RESULTS WERE CALLED IN OVER [place] AT 0653. LORRAINE COLEMAN RN MADE AWARE. [facility] TO CALL AND NOTIFY [facility]. 0705- [facility] RN CALLED AND LEFT MESSAGE WITH [facility] REGARDING LAB RESULTS. .
--- NOTE | 2019-02-12 15:47 | NUR ---
Initial Visit: Palliative Care Consult for Advanced Care Planning. Pt is A&O and reports 7/10 pain in her left side and leg. Pt reports a tolerable level of pain is 5/10. She states the pain does not go below a 7/10 even with current regimen. Pt states the pain started approximately 3 weeks ago and since pain has interferred with her ability to ambulate. Pt denies SOB at this time. Engaged in therapeutic conversation regarding goals of care. Pt lives at home with her Alvaro and is of [employer]. Pt has 2 adult children and between her , children, and grandchildren Pt states adequate support with her care needs. She reports needing assistance with ambulation, transfers, bathing, and dressing. Pt reports still having a meaningfull and quality of life. She still enjoys knitting, crocheting, and spinning. Pt states these activities are soothing. Pt also states that she enjoys gardening. Engaged in discussion about fears or concerns Pt may be having regarding diagnosis. Pt states that she does not have any concerns right now and won't start worrying until she has all the information. Pt reports significant trust in Dr Velazquez and is confident he will establish an appropriate plan. Discussed Advaned Directive and Pt expresses interest. Educated Pt on life sustaining measures including risk factors and importance of health care customer service representative teller. Pt states that she would like to have discussion with her and children before completing form. She requests an extra form for her to complete as well. Pt reports no other concerns at this time. Left 2 advance directives with Pt and contact information for palliative care. Spoke with Pt's nurse Brooklynn and she expresses concern of Pt's unmanaged pain as well. No other concerns reported at this time. Consulted with hospital pharmacist Afshan regarding Pt's unmanaged pain. He recommends changing Pt's hydrocodone 5mg 1-2 tablets to Oxycodone 5mg 1-2 tablets Q4 PRN. Spoke with Dr Brown regarding Pt's pain and pharmacist recommendation. Dr Brown reports that she will consider request after another day of current regimen. Plan: Will remain available for symptom mangement and therapeutic visits.
--- NOTE | 2019-02-13 05:03 | NUR ---
BG 80. ORANGR JUICE PROVIDED. PT ENC TO DRINK. APPETIE REMAINS POOR.
[2019-02-13 05:19] LABS: BASOPHILS ABSOLUTE AUTO 0.03 K/mm3 (0.00-0.23); BASOPHILS PERCENT AUTO 0 % (0-2); EOSINOPHILS ABSOLUTE AUTO 0.05 K/mm3 (0.00-0.68); EOSINOPHILS PERCENT AUTO 0 % (0-6); Hematocrit 24.7 % (33.0-51.0); Hemoglobin 7.3 g/dL (11.5-16.0); IMMATURE GRAN PERCENT AUTO 1 % (0-1); LYMPHOCYTES ABSOLUTE AUTO 0.47 K/mm3 (0.84-5.20); LYMPHOCYTES PERCENT AUTO 2 % (21-46); MONOCYTES PERCENT AUTO 5 % (4-13); Mean Corpuscular HGB 25.4 pg (26.0-34.0); Mean Corpuscular HGB Conc 29.6 g/dL (31.5-36.5); Mean Corpuscular Volume 86 fL (80-100); Mean Platelet Volume 8.8 fL (9.1-12.4); NEUTROPHILS ABSOLUTE AUTO 17.72 K/mm3 (1.96-9.15); NEUTROPHILS PERCENT AUTO 92 % (41-73); Platelet Count 541 K/mm3 (150-400); RDW Coefficient Variation 17.2 % (11.7-14.2); RDW Standard Deviation 54.7 fL (35.1-46.3); Red Blood Cell Count 2.87 M/mm3 (3.80-5.20); White Blood Cell Count 19.27 K/mm3 (4.00-11.30)
--- NOTE | 2019-02-13 05:48 | NUR ---
SHIFT SUMMARY NO CHANGES OVERNIGHT. PT CONTINUES TO HAVE NO OUTPUT FROM OSTOMY. OSTOMY ONLY FULL OF GAS. SHE COMPLAINS OF ABD PAIN /TENDERNESS WITH PALPATION. SHE HAS REFUSED HER STOOL SOFTNERS THIS SHIFT. DESPITE ENCOURAGEMENT TO TAKE THEM. APPETITE REMAINS POOR. ORANGE JUICE GIVEN TO KEEP BG UP.IV ABX INFUSED. PT HAS RESTED T/O SHIFT WITH NO ACUTE CHANGES. MEDICATED FOR PAIN. WILL CONTINUE TO MONITOR AND REPORT TO ONCOMING RN.
[2019-02-13 05:50] LABS: Albumin, Blood 1.5 g/dL (3.4-5.0); Anion Gap 7 mmol/L (6-16); Blood Urea Nitrogen 7 mg/dL (8-24); Bun/Creatinine Ratio 17.6 (12.0-20.0); CO2, Blood 25 mmol/L (21-32); Chloride, Blood 105 mmol/L (98-108); Glomerular Filtration Rate >60 (60-); Glucose, Blood 80 mg/dL (70-99); Phosphorus, Blood 2.4 mg/dL (2.5-4.9); Potassium, Blood 3.5 mmol/L (3.5-5.5); Sodium, Blood 137 mmol/L (136-145)
--- NOTE | 2019-02-13 19:00 | NUR ---
PT. LAYING IN BED, REFUSED HER DINNER THIS EVENING. HAS ONLY TAKEN JUST BITES OF EACH MEAL. SAYS FOOD NAUSEATES HER. PT. HAS BEEN UP TO BSC WITH ASSIST IS HAVING STOOL WHEN SHE VOIDS, ALSO HAVING OUTPUT IN HER OSTOMY TODAY. REPORTS PAIN IN HER LEFT HIP AND LLE NOTED TO BE ENDEMATOUS. NO OTHER NOTEABLE CHANGES THIS SHIFT.
--- NOTE | 2019-02-14 01:57 | NUR ---
PT BLOOD SUGAR LOW AT 69. ENCOURAGED PT TO INCREASE ORAL INTAKE, PT REPORTS NAUSEA WHEN EATING. ADMINISTERED ZOFRAN AND PROVIDED PT c CATHLEEN CRACKERS, PUDDING, AND ORANGE JUICE. WILL CONT OT MONITOR.
[2019-02-14 05:38] LABS: BASOPHILS ABSOLUTE AUTO 0.03 K/mm3 (0.00-0.23); BASOPHILS PERCENT AUTO 0 % (0-2); EOSINOPHILS ABSOLUTE AUTO 0.12 K/mm3 (0.00-0.68); EOSINOPHILS PERCENT AUTO 1 % (0-6); Hematocrit 23.8 % (33.0-51.0); Hemoglobin 7.2 g/dL (11.5-16.0); IMMATURE GRAN ABSOLUTE AUTO 0.11 K/mm3 (0.00-0.10); IMMATURE GRAN PERCENT AUTO 1 % (0-1); LYMPHOCYTES PERCENT AUTO 4 % (21-46); MONOCYTES ABSOLUTE AUTO 1.27 K/mm3 (0.16-1.47); MONOCYTES PERCENT AUTO 8 % (4-13); Mean Corpuscular HGB 25.3 pg (26.0-34.0); Mean Corpuscular HGB Conc 30.3 g/dL (31.5-36.5); Mean Corpuscular Volume 84 fL (80-100); NEUTROPHILS ABSOLUTE AUTO 13.65 K/mm3 (1.96-9.15); NEUTROPHILS PERCENT AUTO 87 % (41-73); Platelet Count 540 K/mm3 (150-400); RDW Coefficient Variation 17.6 % (11.7-14.2); RDW Standard Deviation 53.9 fL (35.1-46.3); Red Blood Cell Count 2.85 M/mm3 (3.80-5.20); White Blood Cell Count 15.78 K/mm3 (4.00-11.30)
[2019-02-14 06:18] LABS: Albumin, Blood 1.5 g/dL (3.4-5.0); Anion Gap 8 mmol/L (6-16); Blood Urea Nitrogen 9 mg/dL (8-24); Bun/Creatinine Ratio 20.6 (12.0-20.0); CO2, Blood 24 mmol/L (21-32); Chloride, Blood 105 mmol/L (98-108); Creatinine, Blood 0.44 mg/dL (0.40-1.00); Glomerular Filtration Rate >60 (60-); Glucose, Blood 64 mg/dL (70-99); Phosphorus, Blood 2.9 mg/dL (2.5-4.9); Potassium, Blood 3.8 mmol/L (3.5-5.5); Sodium, Blood 137 mmol/L (136-145)
--- NOTE | 2019-02-14 07:18 | NUR ---
SHIFT SUMMARY: NO ACUTE CHANGES TONIGHT. PT BLOOD SUGARS ARE AT 69 AND 70. ENCOURAGING PO FOODS AND FLUIDS TOLERATED, ADMINISTERING ANTIEMETICS PRIOR TO FOOD TO DECREASE NAUSEA. PT TOLERATES ORANGE JUICE AND CATHLEEN CRACKERS. ZOSYN ADMINISTERED PER EMAR. PT 1 PER SBA TO BSC; PROVIDE CARE TO COLOSTOMY INDEPENDENTLY. COLOSTOMY IS PUTTING OUT LOOSE, BROWN STOOL. URINE IS MIXED c STOOL D/T FISTULA. NORCO ADMINISTERED 2X FOR L HIP PAIN. NO OTHER CHANGES TO REPORT. WILL CONT TO MONITOR AND PROVIDE CARE UNTIL PRESUMED BY ONCOMING RN.
--- NOTE | 2019-02-14 19:00 | NUR ---
PT. IS ABLE TO EAT A LITTLE MORE TODAY THAN YESTERDAY. PT. FEELS BETTER OVERALL SHE SAYS. OSTOMY CHANGED TODAY. CLINIMIX STARTED. DR. NGUYEN TO SEE PT. THIS EVENING PER DR. JANG
[2019-02-15 05:32] LABS: BASOPHILS ABSOLUTE AUTO 0.03 K/mm3 (0.00-0.23); BASOPHILS PERCENT AUTO 0 % (0-2); EOSINOPHILS ABSOLUTE AUTO 0.19 K/mm3 (0.00-0.68); EOSINOPHILS PERCENT AUTO 2 % (0-6); Hematocrit 22.5 % (33.0-51.0); Hemoglobin 6.6 g/dL (11.5-16.0); IMMATURE GRAN ABSOLUTE AUTO 0.04 K/mm3 (0.00-0.10); IMMATURE GRAN PERCENT AUTO 0 % (0-1); LYMPHOCYTES ABSOLUTE AUTO 0.74 K/mm3 (0.84-5.20); LYMPHOCYTES PERCENT AUTO 8 % (21-46); MONOCYTES ABSOLUTE AUTO 0.89 K/mm3 (0.16-1.47); MONOCYTES PERCENT AUTO 10 % (4-13); Mean Corpuscular HGB 24.9 pg (26.0-34.0); Mean Corpuscular HGB Conc 29.3 g/dL (31.5-36.5); Mean Corpuscular Volume 85 fL (80-100); Mean Platelet Volume 9.2 fL (9.1-12.4); NEUTROPHILS ABSOLUTE AUTO 7.42 K/mm3 (1.96-9.15); NEUTROPHILS PERCENT AUTO 80 % (41-73); Platelet Count 538 K/mm3 (150-400); RDW Coefficient Variation 17.7 % (11.7-14.2); RDW Standard Deviation 55.3 fL (35.1-46.3); Red Blood Cell Count 2.65 M/mm3 (3.80-5.20); White Blood Cell Count 9.31 K/mm3 (4.00-11.30)
[2019-02-15 06:16] LABS: Albumin, Blood 1.4 g/dL (3.4-5.0); Anion Gap 6 mmol/L (6-16); Blood Urea Nitrogen 14 mg/dL (8-24); Bun/Creatinine Ratio 32.9 (12.0-20.0); CO2, Blood 25 mmol/L (21-32); Chloride, Blood 106 mmol/L (98-108); Creatinine, Blood 0.43 mg/dL (0.40-1.00); Glomerular Filtration Rate >60 (60-); Glucose, Blood 94 mg/dL (70-99); Phosphorus, Blood 2.5 mg/dL (2.5-4.9); Potassium, Blood 4.1 mmol/L (3.5-5.5); Sodium, Blood 137 mmol/L (136-145)
--- NOTE | 2019-02-15 06:57 | NUR ---
SHIFT SUMMARY: NO ACUTE CHANGES TO REPORT TONIGHT. PT RECIEVING CLINIMIX @ 75 ML/HR. PT TREATED FOR L HIP PAIN 1X TONIGHT c 2 TAB PO NORCO. Q6H BLOOD SUGARS ARE WNL. PT IS CARING FOR OSTOMY INDEPENDENTLY, SBA TO BSC. URINE IS MIXED c STOOL. WILL CONT TO MONITOR AND PROVIDE CARE UNTIL PRESUMED BY ONCOMING RN.
--- NOTE | 2019-02-15 18:36 | NUR ---
PT. EATING DINNER, DENIES NAUSEA AND REFUSES PO ZOFRAN. 2ND UPRBC STILL INFUSING. DR. NGUYEN CAME BY TO SEE PATIENT THIS EVENING. SAID HE WOULD BE BACK TOMORROW AND EITHER HE OR RADIOLOGY WOULD ASPIRATE THE MASSES THE PATIENT HAS TO IDENTIFY WHAT THEY ARE. DOES NOT WANT TO STEP ON RADIOLOGISTS TOES, SO HE WILL TALK TO THEM AND EITHER HE OR THE RADIOLOGIST WILL DO IT TOMORROW. PT. RECEIVED 1UPRBC'S EARLIER TO TO COVER A LOW H&H. PT. HAS BEEN ABLE TO EAT TODAY WITHOUT BECOMING NAUSEATED. STILL REFUSING BOWEL CARE.
[2019-02-16 05:00] LABS: Hematocrit 35.3 % (33.0-51.0); Hemoglobin 11.2 g/dL (11.5-16.0); Mean Corpuscular HGB 26.5 pg (26.0-34.0); Mean Corpuscular HGB Conc 31.7 g/dL (31.5-36.5); Mean Corpuscular Volume 84 fL (80-100); Mean Platelet Volume 8.7 fL (9.1-12.4); Platelet Count 480 K/mm3 (150-400); RDW Coefficient Variation 17.2 % (11.7-14.2); RDW Standard Deviation 52.1 fL (35.1-46.3); Red Blood Cell Count 4.23 M/mm3 (3.80-5.20); White Blood Cell Count 11.39 K/mm3 (4.00-11.30)
--- NOTE | 2019-02-16 06:22 | NUR ---
SHIFT SUMMARY: NO ACUTE CHANGES TONIGHT. PT C/O INABILITY TO SLEEP AND REQUESTS A "NON-NARCOTIC REMEDY". RECIEVED ORDER FOR 5MG MELATONIN PRN @ BEDTIME. ADMINITERED THIS TONIGHT AND PT WAS ABLE TO GET SOME SLEEP. CLINIMIX RUNNING @ 75 ML/HR. BLOOD TRANSFUSION COMPLETED EARLY IN SHIFT, AND H/H RESPONDED WELL. H/H THIS AM AT 11.5 AND 32. PT TREATED 1X FOR PAIN WITH 2 TABS NORCO. WILL CONT TO MONITOR AND PROVIDE CARE UNTIL PRESUMED BY ONCOMING RN.
--- NOTE | 2019-02-16 18:32 | NUR ---
THE PATIENT PRESENTED THIS SHIFT WITH VITALS WNL, A&O X4 AND WITH CLEAR LUNGS. THE PATIENT HAS LOST THREE IVS TODAY AND HAD THEM REPLACED. THE PATIENT IS SCEDULED FOR A CT GLIDED BIOPSY WITH TUBE PLACEMENT TOMORROW IF INR COMES BACT WITHIN LEVELS. THE PATIENT IS EATING DINNER AT THIS TIME, WILL CONTINUE TO MONITOR.
[2019-02-17 05:57] LABS: International Normalized Ratio 1.06; Prothrombin Time Results 11.2 Sec (9.7-11.5)
--- NOTE | 2019-02-17 07:42 | NUR ---
SHIFT SUMMARY: NO ACUTE CHANGES TONIGHT. PT IS TREATED 1X FOR PAIN c PRN NORCO (2 TABS). VSS. INDEPENDENT TRANSFER TO BSC. ADMINISTERED MELATONIN FOR SLEEP AID. NO OTHER CHANGES TO REPORT. WILL CONT TO MONITOR AND PROVIDE CARE UNTIL PRESUMED BY ONCOMING RN.
--- NOTE | 2019-02-17 17:49 | NUR ---
SHIFT SUMMARY THE PATIENT PRESENTED THIS SHIFT WITH VITALS WNL, A&O X4 AND LUNGS THAT WERE CLEAR. THE PATIENT WENT FOR HER CT GLIDED BIOX AND DRAINPLACEMENT THIS AFTERNOON AND WILL MOST LIKELY GO HOME TOMORROW. THE PATIENT'S IV INFILTRATED THIS AM AND A NEW IV WAS NOT ABLE TO BE STARTED, BECAUSE OF ARM SWELLING. PATIENT'S DOCTOR ORDERED IV MEDICATIONS STOPPED AND NO NEW IV'S. THE PATIENT IS RESTING EATING HER DINNER AT THIS TIME, WILL CONTINUE TO MONITOR.
[2019-02-17 20:57] LABS: Body Fluid WBC Count 133680 /mm3 (0-999)
[2019-02-17 21:02] LABS: Automated BF RBC Count 0.417 M/mm3 (0-0); RBC Count, Body Fluid 417000 /mm3 (0-0)
[2019-02-17 21:07] LABS: Appearance, Body Fluid Turbid (Clear); Color, Body Fluid Red (None-Yellow); Total Cell Count, Body Fluid 100
[2019-02-17 21:21] LABS: Appearance, Body Fluid Turbid (Clear); Automated BF RBC Count 0.168 M/mm3 (0-0); Color, Body Fluid Red (None-Yellow); RBC Count, Body Fluid 168000 /mm3 (0-0)
[2019-02-17 21:34] LABS: Body Fluid WBC Count > 200 /mm3 (0-999)
[2019-02-17 22:25] LABS: Total Cell Count, Body Fluid 100
--- NOTE | 2019-02-18 06:01 | NUR ---
58 Y/O FEMALE RESTED COMFORTABLY ALL MORNING WITH NO C/O PAIN OR NAUSEA. PTS BED IN LOW POSITION, CALL LIGHT AT SIDE.
[2019-02-18] MEDS ORDERED: AMOCLA500 PO (11:34)
[2019-02-18] MEDS ORDERED: DOCU100 PO (11:35)
[2019-02-18] MEDS ORDERED: Acidophilus La100 GM PO (11:35)
[2019-02-18] MEDS ORDERED: SENN187 PO (11:36)
--- NOTE | 2019-02-18 12:56 | NUR ---
DISCHARGE NOTE PT LEFT WITH VIA WHEELCHAIR. DRAIN FROM L SIDE IS DRAINING, PT EDUCATED ON DRAIN CARE. HOME HEALTH TO CALL AND F/U WITH ON WEDNESDAY. PAPERWORK REVIEWED, MEDS FA[facility]ED TO [facility]. PT DENIED PAIN, HAPPY TO BE GOING HOME. STATES SHE FEELS VERY WEAK BUT DOESN'T WANT PT OR TO GO TO A REHAB FACILITY AT THIS TIME.
== END 2019-02-18 12:36 | disposition home health service (06) | DRG 987 ==
LOC: ER 18:03 → MEDS 02-11 03:47 → PCU 02-11 03:47 → MEDS 02-11 17:15 → ENPENDDIS 02-18 11:00 → MEDS 02-18 12:36
PROVIDERS: Internal Medicine; Internal Medicine Hematology & Oncology; Physician Assistant; ADMIT Internal Medicine
PROC: 30233N1 Transfusion of Nonautologous Red Blood Cells into Peripheral Vein, Percutaneous Approach (ICD-10-PCS; principal; 2019-02-17)
PROC: 0QB Lower Bones, Excision (ICD-10-PCS; 2019-02-17)
DX: T82.7XXA Infection and inflammatory reaction due to other cardiac and vascular devices, implants and grafts, initial encounter (principal); A41.9 Sepsis, unspecified organism; E43 Unspecified severe protein-calorie malnutrition; C78.5 Secondary malignant neoplasm of large intestine and rectum; E87.1 Hypo-osmolality and hyponatremia; Z68.1 Body mass index [BMI] 19.9 or less, adult; R64 Cachexia; N13.6 Pyonephrosis; Z51.5 Encounter for palliative care; E16.2 Hypoglycemia, unspecified; Z85.118 Personal history of other malignant neoplasm of bronchus and lung; Z92.3 Personal history of irradiation; K59.00 Constipation, unspecified; E87.6 Hypokalemia; E83.39 Other disorders of phosphorus metabolism; Z86.718 Personal history of other venous thrombosis and embolism; Z85.3 Personal history of malignant neoplasm of breast; E88.09 Other disorders of plasma-protein metabolism, not elsewhere classified; F17.210 Nicotine dependence, cigarettes, uncomplicated; R62.7 Adult failure to thrive; D50.9 Iron deficiency anemia, unspecified; D63.0 Anemia in neoplastic disease
CPT/HCPCS: 27040; 36415; 36430; 74177; 75989; 77012; 80053; 80069; 81001; 82947; 83605; 83735; 84100; 85025; 85027; 85610; 85730; 86850; 86900; 86901; 86923; 87070; 87075; 87086; 87205; 88108; 88305; 88341; 88342; 89051; 96361-59; 96365-59; 96375-59; 99285-25; A9270-GY; J1170; J2405; J2543; J2550; J3010; J3480; J7030; J7060; P9016; Q9967

== ENCOUNTER → 2019-03-23 | Outpatient (CLI) | payer MEDICARE, OTHER ==
[~2019-03-23] MED LIST changes: +AMOCLA500 PO; +DOCU100 PO; +SENN187 PO
[2019-03-23 15:57] LABS: BASOPHILS ABSOLUTE AUTO 0.06 K/mm3 (0.00-0.23); BASOPHILS PERCENT AUTO 0 % (0-2); EOSINOPHILS ABSOLUTE AUTO 0.03 K/mm3 (0.00-0.68); EOSINOPHILS PERCENT AUTO 0 % (0-6); Hematocrit 33.1 % (33.0-51.0); Hemoglobin 10.7 g/dL (11.5-16.0); IMMATURE GRAN PERCENT AUTO 1 % (0-1); LYMPHOCYTES ABSOLUTE AUTO 0.72 K/mm3 (0.84-5.20); LYMPHOCYTES PERCENT AUTO 3 % (21-46); MONOCYTES ABSOLUTE AUTO 0.97 K/mm3 (0.16-1.47); MONOCYTES PERCENT AUTO 5 % (4-13); Mean Corpuscular HGB 27.5 pg (26.0-34.0); Mean Corpuscular HGB Conc 32.3 g/dL (31.5-36.5); Mean Corpuscular Volume 85 fL (80-100); NEUTROPHILS ABSOLUTE AUTO 19.53 K/mm3 (1.96-9.15); NEUTROPHILS PERCENT AUTO 91 % (41-73); Platelet Count 703 K/mm3 (150-400); RDW Standard Deviation 49.2 fL (35.1-46.3); Red Blood Cell Count 3.89 M/mm3 (3.80-5.20); White Blood Cell Count 21.51 K/mm3 (4.00-11.30)
[2019-03-23 16:09] LABS: Alanine Aminotransfer (ALT/SGP 16 U/L (12-78); Albumin, Blood 2.6 g/dL (3.4-5.0); Albumin/Globulin Ratio 0.5 (0.8-1.8); Alk Phos 123 U/L (50-136); Anion Gap 9 mmol/L (6-16); Aspartate Aminotrans (AST/SGOT 21 U/L (12-37); Bilirubin, Total 0.3 mg/dL (0.1-1.0); Blood Urea Nitrogen 23 mg/dL (8-24); Bun/Creatinine Ratio 25.2 (12.0-20.0); CO2, Blood 23 mmol/L (21-32); Calcium, Blood 9.1 mg/dL (8.5-10.1); Chloride, Blood 89 mmol/L (98-108); Creatinine, Blood 0.91 mg/dL (0.40-1.00); Globulin, Blood 4.9 g/dL (2.2-4.0); Glomerular Filtration Rate >60 (60-); Glucose, Blood 73 mg/dL (70-99); Potassium, Blood 4.7 mmol/L (3.5-5.5); Sodium, Blood 121 mmol/L (136-145); Total Protein, Blood 7.5 g/dL (6.4-8.2)
== END | disposition home or self-care (01) ==
LOC: LAB 15:06 → LAB SHORT 15:06
PROVIDERS: Internal Medicine Hematology & Oncology
DX: C20 Malignant neoplasm of rectum (principal)
CPT/HCPCS: 80053; 85025

== ENCOUNTER 2019-04-17 12:56 | Emergency (ER) | payer MEDICARE, OTHER ==
[~2019-04-17] VITALS: Ht 149.9 cm; Wt 25.9 kg
[2019-04-17 13:28] LABS: BASOPHILS ABSOLUTE AUTO 0.05 K/mm3 (0.00-0.23); BASOPHILS PERCENT AUTO 0 % (0-2); EOSINOPHILS ABSOLUTE AUTO 0.01 K/mm3 (0.00-0.68); EOSINOPHILS PERCENT AUTO 0 % (0-6); Hematocrit 32.3 % (33.0-51.0); Hemoglobin 10.1 g/dL (11.5-16.0); IMMATURE GRAN ABSOLUTE AUTO 0.09 K/mm3 (0.00-0.10); IMMATURE GRAN PERCENT AUTO 1 % (0-1); LYMPHOCYTES ABSOLUTE AUTO 0.29 K/mm3 (0.84-5.20); LYMPHOCYTES PERCENT AUTO 2 % (21-46); MONOCYTES ABSOLUTE AUTO 0.83 K/mm3 (0.16-1.47); MONOCYTES PERCENT AUTO 5 % (4-13); Mean Corpuscular HGB 27.7 pg (26.0-34.0); Mean Corpuscular HGB Conc 31.3 g/dL (31.5-36.5); Mean Corpuscular Volume 89 fL (80-100); Mean Platelet Volume 9.5 fL (9.1-12.4); NEUTROPHILS ABSOLUTE AUTO 16.35 K/mm3 (1.96-9.15); NEUTROPHILS PERCENT AUTO 93 % (41-73); Platelet Count 553 K/mm3 (150-400); RDW Coefficient Variation 15.3 % (11.7-14.2); RDW Standard Deviation 49.4 fL (35.1-46.3); Red Blood Cell Count 3.65 M/mm3 (3.80-5.20); White Blood Cell Count 17.62 K/mm3 (4.00-11.30)
[2019-04-17 13:43] LABS: Alanine Aminotransfer (ALT/SGP 9 U/L (12-78); Albumin, Blood 1.9 g/dL (3.4-5.0); Albumin/Globulin Ratio 0.4 (0.8-1.8); Alk Phos 127 U/L (50-136); Anion Gap 11 mmol/L (6-16); Aspartate Aminotrans (AST/SGOT 14 U/L (12-37); Bilirubin, Total 0.5 mg/dL (0.1-1.0); Blood Urea Nitrogen 48 mg/dL (8-24); Bun/Creatinine Ratio 87.8 (12.0-20.0); CO2, Blood 24 mmol/L (21-32); Calcium, Blood 8.6 mg/dL (8.5-10.1); Chloride, Blood 97 mmol/L (98-108); Creatinine, Blood 0.55 mg/dL (0.40-1.00); Globulin, Blood 4.8 g/dL (2.2-4.0); Glomerular Filtration Rate >60 (60-); Glucose, Blood 113 mg/dL (70-99); Potassium, Blood 4.3 mmol/L (3.5-5.5); Sodium, Blood 132 mmol/L (136-145); Total Protein, Blood 6.7 g/dL (6.4-8.2)
--- NOTE | 2019-04-17 17:13 | NUR ---
Initial Visit: Palliative Care Consult for Goals of Care. Spoke with Dr Hardwick and he reports Pt's prognosis is poor and has spoken with Pt's oncologist Dr Velazquez. Both Dr Hardwick and Dr Velazquez are agreeable that hospice should be discussed as an option for Pt and family. Pt is reting on gurjose upon arrival. She is cachectic and skin color is ashoned. Pt is lethargic and speaks in a soft tone. Pt request to not have a visit at this time. Family requests to have a visit outside of Pt's room. Met with Pt's daughters, granddaughters, and Pt's Alvaro in ICU consultation room. Engaged in therapeutic discussion regarding Pt's prognosis and goals of care. Encouraged family to discuss fears and cocnerns. Family report knowing Pt is at end of life and Pt has been experiencing a significant decline over the last 2 weeks. Pt has been experiencing increased confusion, has been bed bound, incontinent of bowel and bladder, and appetite has significantly decreased. Discussed hospice as an option and family is agreeable with hospice but is concerned about causing extra stress and anxiety for Pt. Family report Pt has a fear of her condition and a fear of dying. Educated family on the importance of allowing fears to be known. Educated family on hospice philosophy with V/U made by family. expresses concerns regarding the need for respite. Suggested that family pull together and share in the duties for caring for Pt. Instructed that hospice also has volunteers available to keep Pt company for family to have time for themselves. Visit with family occured for quite some time listening and answering questions. At the end of visit family reports they choose hospice and prefer [facility]. No other concerns at this time. Spoke with Dr Hardwick of family's decision and he is agreeable with plan. Spoke with bedside nurse Marti and she is agreeable with plan. Spoke with [facility] Candida. Candida reports that she will intiate process to admit Pt onto hospice services. Plan: Pt will discharge home on hospice. Palliative Care will remain available.
== END 2019-04-17 20:40 | disposition home or self-care (01) ==
LOC: ER 12:56
PROVIDERS: Emergency Medicine
DX: E86.0 Dehydration (principal); R64 Cachexia; Z68.1 Body mass index [BMI] 19.9 or less, adult; C20 Malignant neoplasm of rectum; Z66 Do not resuscitate; Z88.2 Allergy status to sulfonamides; Z79.899 Other long term (current) drug therapy; Z85.3 Personal history of malignant neoplasm of breast; D64.9 Anemia, unspecified; F17.210 Nicotine dependence, cigarettes, uncomplicated
CPT/HCPCS: 36415; 80053; 85025; 93005; 93010; 96361; 96374; 96375; 96376; 99284-25; J2405; J3010; J7120